=== PATIENT | female | born 1955 | race American Indian/Alaskan Native ===

== ENCOUNTER 2017-11-21 13:16 | Outpatient (CLI) | payer BC ==
--- NOTE | 2017-11-28 10:09 | Vascular Lab Report ---
Left Lower Extremity Venous Duplex Study: Reason for Exam: Pain and swelling of the left lower extremity. Comments on the Right: A limited duplex study was done of the proximal veins of the right lower extremity. All veins visualized are freely compressible without evidence of internal echogenicity. Flow is spontaneous and phasic throughout. No evidence of acute or chronic thrombus is seen in any of the vessels visualized. Comments on the Left: Superficial venous thrombosis is seen in the greater saphenous vein beginning 1 cm from the saphenofemoral junction and extending down to the midcalf. The remaining veins visualized are freely compressible without evidence of internal echogenicity. Spontaneous and phasic flow is present proximally. Impression: Acute superficial venous thrombosis of the left greater saphenous vein originating 1 cm distal to the saphenofemoral junction and extending into the midcalf. No evidence of acute deep venous thrombosis in the left lower extremity.
== END 2017-11-21 13:17 | disposition home or self-care (01) ==
LOC: VAS 13:16
PROVIDERS: ATTEND Family Medicine
DX: I82.492 Acute embolism and thrombosis of other specified deep vein of left lower extremity (principal)